=== PATIENT | female | born 1960 | race Caucasian/White ===

== ENCOUNTER 2019-10-30 19:37 | Emergency (ER) | payer BC ==
[2019-10-30 19:41] VITALS: BP 107/72; PULSE 52; RESP 20; TEMP 97.8
[2019-10-30] MEDS ORDERED: IBUPROFEN 600 MG TAB PO STA (19:53)
--- NOTE | 2019-10-30 19:57 | ED ---
Upper Extremity HPI - General Chief Complaint: Extremity Injury, Upper Stated Complaint: Fall Rt Wrist Injury Time Seen by Provider: 10/30/19 19:42 Source: patient Mode of arrival: ambulatory Limitations: no limitations - History of Present Illness Initial Comments: Patient is a 59-year-old female presenting to emergency Department with complaints of right wrist pain. Patient states she tripped and fell backwards landing onto her right wrist. She denies hitting her head or any other injuries at this time. States she is unable to move her wrist. She denies any previous wrist or hand surgeries. She has no other complaints at this time. Upon arrival to the ER, her vital signs are stable. - Related Data Allergies Allergy/AdvReac Type Severity Reaction Status Date / Time No Known Allergies Allergy Verified 10/30/19 19:41 Review of Systems ROS Statement: Those systems with pertinent positive or pertinent negative responses have been documented in the HPI. ROS Other: All systems not noted in ROS Statement are negative. Past Medical History Past Medical History: No Reported History History of Any Multi-Drug Resistant Organisms: None Reported Past Surgical History: No Surgical Hx Reported Past Psychological History: No Psychological Hx Reported Smoking Status: Never smoker Past Alcohol Use History: None Reported Past Drug Use History: None Reported General Exam - General Exam Comments Initial Comments: GENERAL: Well-appearing, well-nourished and in no acute distress. HEAD: Atraumatic, normocephalic. EYES: Pupils equal round and reactive to light, extraocular movements intact, sclera anicteric, conjunctiva are normal. ENT: Moist mucous membranes. NECK: Normal range of motion, supple without lymphadenopathy or JVD. LUNGS: Breath sounds clear to auscultation bilaterally and equal. No wheezes rales or rhonchi. HEART: Regular rate and rhythm without murmurs, rubs or gallops. ABDOMEN: Soft, nontender, normoactive bowel sounds. No guarding, no rebound. No masses appreciated. : Deferred EXTREMITIES: Patient has pain with palpation of her right wrist, moderate amount of swelling over the dorsal aspect. Patient is unable to flex or extend or supinate the right wrist. No pain at the right elbow or right shoulder. She is neurovascular intact. NEUROLOGICAL: Normal speech, normal gait. PSYCH: Normal mood, normal affect. SKIN: Warm, Dry, normal turgor, no rashes or lesions noted. Limitations: no limitations Course Vital Signs 10/30/19 19:38 Temperature 97.8 F Pulse Rate 52 L Respiratory 20 Rate Blood Pressure 107/72 O2 Sat by Pulse 98 Oximetry Procedures - Orthopedic Splinting/Casting Injury #1 Side: right Upper Extremity Injury Location: short arm Upper Extremity Immobilizer: sling/shoulder immobilizer, posterior splint, Av wrap, synthetic pre-padded splint Medical Decision Making - Medical Decision Making Patient is 59-year-old female here with right wrist pain after falling on it just prior to arrival. Patient does have significant swelling of the dorsal aspect of the right wrist. X-rays reveal a displaced ulnar styloid fracture as well as a comminuted intra-articular distal right radial fracture. Patient was given Motrin. Patient will be put in a short arm splint as well as a sling for comfort. She will follow up with orthopedics tomorrow. Patient was given starter pack of Tylenol 3 for pain. She is agreeable with this plan of care. She is stable for discharge. Return parameters were discussed with the patient she verbalized understanding. Case discussed Dr. Sinclair. Disposition Clinical Impression: Fracture of distal end of right radius and ulna Disposition: HOME SELF-CARE Condition: Stable Instructions (If sedation given, give patient instructions): Wrist Fracture in Adults (ED) Additional Instructions: Please return to the Emergency Department if symptoms worsen or any other concerns. Leave splint in place until follow-up with orthopedics. May take ibuprofen for pain and swelling. Use ice as needed for pain and swelling. Follow up with orthopedics tomorrow morning as discussed. Is patient prescribed a controlled substance at d/c from ED?: No Referrals: Orion Henriquez MD [Primary Care Provider] - 1-2 days Agus Valladares MD [STAFF PHYSICIAN] - 1-2 days
--- NOTE | 2019-10-30 20:28 | XR ---
Right forearm and right wrist HISTORY: Trauma and pain 4 views of the right wrist, 2 views of the forearm submitted. There is a displaced ulnar styloid fracture present. Comminuted intra-articular distal right radial f racture with a fragment showing some displacement is also noted, slight dorsal angulation, there is a ssociated soft tissue swelling present. IMPRESSION: Wrist fractures as described.
[2019-10-30] MEDS ORDERED: ACET/COD 300 MG/30 MG STARTER PACK 6 TAB BTL PO STA (20:45)
== END 2019-10-30 20:56 | disposition home or self-care (01) ==
LOC: EC 19:37
DX: S52.571A Other intraarticular fracture of lower end of right radius, initial encounter for closed fracture (principal); S52.611A Displaced fracture of right ulna styloid process, initial encounter for closed fracture; W01.0XXA Fall on same level from slipping, tripping and stumbling without subsequent striking against object, initial encounter; Y92.009 Unspecified place in unspecified non-institutional (private) residence as the place of occurrence of the external cause
CPT/HCPCS: 29125; 99283

== ENCOUNTER → 2020-10-15 | Outpatient (CLI) | payer BC ==
--- NOTE | 2020-10-15 19:47 | ECHOF ---
Referral Reason:I49.3 Ventricular premature depolarization MEASUREMENTS -------- HEIGHT: 175.3 cm WEIGHT: 81.6 kg BP: RVIDd: 2.6 cm (< 3.3) IVSd: 1.0 cm (0.6 - 1.1) LVIDd: 4.6 cm (3.9 - 5.3) LVPWd: 0.8 cm (0.6 - 1.1) IVSs: 1.2 cm LVIDs: 3.1 cm LVPWs: 1.7 cm LA Diam: 3.5 cm (2.7 - 3.8) LAESV Index (A-L): 26.12 ml/m Ao Diam: 2.5 cm (2.0 - 3.7) AV Cusp: 1.8 cm (1.5 - 2.6) LA Diam: 3.4 cm (2.7 - 3.8) MV EXCURSION: 17.896 mm (> 18.000) MV EF SLOPE: 90 mm/s (70 - 150) EPSS: 0.2 cm MV E Torrey: 0.61 m/s MV DecT: 221 ms MV A Torrey: 0.56 m/s MV E/A Ratio: 1.10 RAP: 5.00 mmHg RVSP: 22.12 mmHg FINDINGS -------- Sinus rhythm. This was a technically adequate study. LV size, wall thickness and systolic function are normal, with an EF greater than 55%. The left pauline tricular size is normal. The right ventricle is normal in size. Normal LA size by volume 22+/-6 ml/m2. The right atrial size is normal. The aortic valve is trileaflet, and appears structurally normal. No aortic stenosis or regurgitation. The mitral valve is normal. Mild mitral regurgitation is present. The tricuspid valve appears structurally normal. Mild tricuspid regurgitation present. Right vent ricular systolic pressure is normal at < 35 mmHg. The right ventricular systolic pressure, as measu red by Doppler, is 22.12mmHg. Trace/mild (physiologic) pulmonic regurgitation. The aortic root size is normal. There is no pericardial effusion. CONCLUSIONS -------- 1. LV size, wall thickness and systolic function are normal, with an EF greater than 55%. 2. Normal LA size by volume 22+/-6 ml/m2. 3. The aortic valve is trileaflet, and appears structurally normal. No aortic stenosis or regurgitati on. 4. Mild mitral regurgitation is present. 5. Mild tricuspid regurgitation present. 6. Trace/mild (physiologic) pulmonic regurgitation. 7. There is no pericardial effusion. TECHNICAL PLANNER: Ely Rivera RDCS
== END | disposition home or self-care (01) ==
LOC: RADECHMAIN 08:14
PROVIDERS: ATTEND Nurse Practitioner Adult Health
DX: I08.1 Rheumatic disorders of both mitral and tricuspid valves (principal)
CPT/HCPCS: 93306

== ENCOUNTER 2020-10-21 18:13 | Emergency (ER) | payer BC ==
--- NOTE | 2020-10-21 19:29 | ED ---
SOB HPI - General Chief Complaint: Shortness of Breath Stated Complaint: Sent by PCP Time Seen by Provider: 10/21/20 19:12 Source: patient, RN notes reviewed Mode of arrival: ambulatory Limitations: no limitations - History of Present Illness Initial Comments: 60-year-old well-appearing white female presents to the emergency room ambulatory. Patient states was sent by Dr. Henriquez's office today after having a positive d-dimer of 1.02. Patient states has had dizziness on and off for over 10 days was put on a olive pitter which revealed only occasional PVCs. Patient. Patient states he has no medical history and only takes vitamins including niacin and OTC joint therapy. Patient is a nonsmoker. States surgical history of a torn right meniscus over 15 years ago and right wrist fracture over 10 years ago not requiring surgery. Patient states when she has dizziness would resolve when she lays down. Patient states does not feel short of breath but is aware of having to drop breath and states worse when she lays down. MD Complaint: shortness of breath -: days(s) (10) Severity: mild Severity scale (1-10): 4 Quality: other (Denies pain states just feels aware of her breathing) Consistency: intermittent Improves With: nothing Worsens With: lying flat Context: other (has had intermitent dizziness) Associated Symptoms: other (dizziness) Treatments Prior to Arrival: other (pcr covid, ekg, d-dimer 1.02, mag 2.1, trop .012) - Related Data Previous Rx's Medication Instructions Recorded Albuterol Inhaler [Ventolin Hfa 2 puff INHALATION RT-QID #1 puff 10/21/20 Inhaler] predniSONE [Deltasone] 20 mg PO BID 5 Days #10 tab 10/21/20 Allergies Allergy/AdvReac Type Severity Reaction Status Date / Time No Known Allergies Allergy Verified 10/21/20 18:48 Review of Systems ROS Statement: Those systems with pertinent positive or pertinent negative responses have been documented in the HPI. ROS Other: All systems not noted in ROS Statement are negative. Past Medical History Past Medical History: No Reported History History of Any Multi-Drug Resistant Organisms: None Reported Past Surgical History: Orthopedic Surgery Past Psychological History: No Psychological Hx Reported Smoking Status: Former smoker Past Alcohol Use History: Occasional Past Drug Use History: None Reported General Exam Limitations: no limitations General appearance: alert, in no apparent distress Head exam: Present: atraumatic, normocephalic, normal inspection Eye exam: Present: normal appearance, PERRL, EOMI. Absent: scleral icterus, conjunctival injection, periorbital swelling ENT exam: Present: normal exam, mucous membranes moist Neck exam: Present: normal inspection. Absent: tenderness, meningismus, lymphadenopathy Respiratory exam: Present: normal lung sounds bilaterally. Absent: respiratory distress, wheezes, rales, rhonchi, stridor Cardiovascular Exam: Present: normal rhythm, bradycardia, normal heart sounds. Absent: systolic murmur, diastolic murmur, rubs, gallop, clicks GI/Abdominal exam: Present: soft, normal bowel sounds. Absent: distended, tenderness, guarding, rebound, rigid Neurological exam: Present: alert, oriented X3, CN II-XII intact Psychiatric exam: Present: normal affect, normal mood, anxious Skin exam: Present: warm, dry, intact, normal color. Absent: rash Course Vital Signs 10/21/20 18:46 Temperature 97.9 F Pulse Rate 56 L Respiratory 20 Rate Blood Pressure 117/61 O2 Sat by Pulse 99 Oximetry Medical Decision Making - Medical Decision Making Case discussed with Dr. Shelton. CTA shows no PE, 1.5 cm cyst in the right upper lobe increased slightly in size from 2012. There is no pericardial effusion, there is no hilar mass, no aneurysms months, aorta intact, lungs clear. She was Covid negative with rapid test. CO2 is 32, d-dimer from outpatient lab draw 1.02 and troponin is 0.012, magnesium 2.1 - Lab Data Result diagrams: 10/21/20 21:02 Lab Results 10/21/20 10/21/20 10/21/20 Range/Units 21:02 21:02 21:02 PT 10.3 (9.0-12.0) sec INR 1.0 (<1.2) APTT 22.0 (22.0-30.0) sec Sodium 139 (137-145) mmol/L Potassium 4.1 (3.5-5.1) mmol/L Chloride 103 (98-107) mmol/L Carbon Dioxide 32 H (22-30) mmol/L Anion Gap 4 mmol/L BUN 15 (7-17) mg/dL Creatinine 0.69 (0.52-1.04) mg/dL Est GFR (CKD-EPI)AfAm >90 (>60 ml/min/1.73 sqM) Est GFR (CKD-EPI)NonAf >90 (>60 ml/min/1.73 sqM) Glucose 93 (74-99) mg/dL Calcium 9.6 (8.4-10.2) mg/dL Total Bilirubin 0.6 (0.2-1.3) mg/dL AST 21 (14-36) U/L ALT 17 (4-34) U/L Alkaline Phosphatase 85 (38-126) U/L Total Protein 7.2 (6.3-8.2) g/dL Albumin 4.4 (3.5-5.0) g/dL Coronavirus (PCR) Not Detected (Not Detectd) - EKG Data -: EKG Interpreted by Me EKG shows normal: sinus rhythm (Ventricular rate of 48, MT interval 0.15, QRS of 0.88, QTc of 410 ms) Rate: bradycardia Disposition Clinical Impression: Dyspnea Disposition: HOME SELF-CARE Condition: Good Additional Instructions: Take prednisone as prescribed for the next 5 days, use albuterol inhaler as needed for shortness of breath every 4 hours. Return to the emergency room if increasing shortness of breath or chest pain. Follow-Up with your doctor this week Prescriptions: predniSONE [Deltasone] 20 mg PO BID 5 Days #10 tab Albuterol Inhaler [Ventolin Hfa Inhaler] 2 puff INHALATION RT-QID #1 puff Is patient prescribed a controlled substance at d/c from ED?: No Referrals: Orion Henriquez MD [Primary Care Provider] - 1-2 days Time of Disposition: 23:08
[2020-10-21 21:26] LABS: ALT 17 U/L (4-34); AST 21 U/L (14-36); African American GFR (CKD) >90 (>60 ml/min/1.73 sqM); Albumin 4.4 g/dL (3.5-5.0); Alkaline Phosphatase 85 U/L (38-126); Anion Gap 4 mmol/L; Blood Urea Nitrogen 15 mg/dL (7-17); Calcium 9.6 mg/dL (8.4-10.2); Carbon Dioxide 32 mmol/L (22-30); Chloride 103 mmol/L (98-107); Glucose 93 mg/dL (74-99); Non-African American GFR(CKD) >90 (>60 ml/min/1.73 sqM); Potassium 4.1 mmol/L (3.5-5.1); Sodium 139 mmol/L (137-145); Total Bilirubin 0.6 mg/dL (0.2-1.3); Total Protein 7.2 g/dL (6.3-8.2)
[2020-10-21 21:40] LABS: Prothrombin Time 10.3 sec (9.0-12.0)
--- NOTE | 2020-10-21 22:41 | CT ---
EXAMINATION TYPE: CT angio chest DATE OF EXAM: 10/21/2020 COMPARISON: None HISTORY: elevated d-dimer CT DLP: 310.4 mGycm Automated exposure control for dose reduction was used. CONTRAST: Performed with IV Contrast, patient injected with 72cc mL of Isovue 370. Images obtained from the thoracic inlet to the diaphragm with IV contrast and 3-D post processed imag es. The lungs are clear of infiltrate. There is no pleural effusion. Heart size is normal. There is no pe ricardial effusion. There are no hilar masses. There is no mediastinal adenopathy. Thoracic aorta is intact. There is no aneurysm or dissection. The re is 1.5 cm cyst in the superior right lobe of the liver slightly increased in size compared to old CT scan of 08/12/2011. There is normal contrast opacification of the pulmonary arteries. There are no filling defects. There is intact thoracic spine. There is no compression fracture. Sternum is intact. The ribs appear intact. IMPRESSION: Negative exam. No evidence of pulmonary embolism.
[2020-10-21 23:44] VITALS: BP 133/72; PULSE 61; RESP 18; TEMP 97.8
== END 2020-10-21 23:44 | disposition home or self-care (01) ==
LOC: EC 18:13
DX: R06.00 Dyspnea, unspecified (principal); Z87.891 Personal history of nicotine dependence; Z20.822 Contact with and (suspected) exposure to COVID-19
CPT/HCPCS: 36415; 93005; 80053; 85610; 85730; 87635; 71275; 99285; Q9967

== ENCOUNTER → 2020-10-21 | Outpatient (CLI) | payer BC ==
[2020-10-21 16:37] LABS: Basophils % (A) 1 %; Eosinophils % (A) 1 %; HCT 45.3 % (34.0-46.0); Lymphocytes # (A) 1.8 k/uL (1.0-4.8); Lymphocytes % (A) 36 %; MCH 31.1 pg (25.0-35.0); MCHC 33.2 g/dL (31.0-37.0); MCV 93.8 fL (80.0-100.0); Mean Platelet Volume 8.1; Monocytes # (A) 0.4 k/uL (0-1.0); Monocytes % (A) 7 %; Neutrophils # (A) 2.6 k/uL (1.3-7.7); Neutrophils % (A) 52 %; Platelet Count 222 k/uL (150-450); RBC 4.83 m/uL (3.80-5.40); RDW 12.4 % (11.5-15.5); WBC 4.9 k/uL (3.8-10.6)
[2020-10-21 16:47] LABS: Magnesium 2.1 mg/dL (1.6-2.3)
== END | disposition home or self-care (01) ==
LOC: LABWHC1 16:08
PROVIDERS: ATTEND Nurse Practitioner Adult Health
DX: R07.9 Chest pain, unspecified (principal); R53.83 Other fatigue
CPT/HCPCS: 36415; 82607; 83735; 84484; 85025; 85379

== ENCOUNTER 2021-03-30 11:02 | Day surgery (SDC) | payer BC ==
[2021-03-26 10:04] VITALS: BMI 26.0
[~2021-03-30 11:02] MED LIST: SODIUM CHLORIDE 0.9% 1,000 ML IV SCH
[2021-03-30 11:35] VITALS: BP 119/54; PULSE 55; RESP 18; TEMP 97.7
--- NOTE | 2021-03-30 16:12 | P.EPPROC ---
- EP Procedure Note Electrophysiology Procedure Note: Diagnosis Recurrent syncope Twelve-lead EKG shows sinus rhythm normal MS narrow QRS QT interval is about 460 ms, The JT interval appears mildly prolonged/upper limits of normal Tilt table test per protocol Baseline blood pressure 129/61 mmHg Baseline heart rate 52 beats a minute patient was tilted upright at night left 70 per protocol blood pressure remained stable for about 6 minutes following that there was a sudden drop in blood pressure to 77 mmHg and then further down to 48/33 mmHg. The patient complained of being lightheaded with a tingling sensation and then passed out completely No symptoms and change in heart rate When she was laid supine blood pressure normalized immediately and she regained consciousness very quickly Impression vasodepressor response to upright tilting QT interval is the upper limits of normal
== END 2021-03-30 13:22 | disposition home or self-care (01) ==
LOC: CATHEP 11:02
PROVIDERS: ATTEND Internal Medicine Clinical Cardiac Electrophysiology
DX: R55 Syncope and collapse (principal); E78.2 Mixed hyperlipidemia; Z82.49 Family history of ischemic heart disease and other diseases of the circulatory system; I47.2 Ventricular tachycardia; Z79.899 Other long term (current) drug therapy
CPT/HCPCS: 93660

== ENCOUNTER → 2021-04-12 | Outpatient (CLI) | payer BC ==
--- NOTE | 2021-04-12 11:32 | MR ---
EXAMINATION TYPE: MR angio head wo con DATE OF EXAM: 04/12/2021 COMPARISON: None HISTORY: Syncope, fall, hitting face on March 11. TECHNIQUE: Time of flight images focusing on the [place] of [place] were performed without contrast. FINDINGS: Distal ICAs and vertebral arteries are within normal limits. The left A1 and M1 segments ar e slightly narrowed compared to the right. The bilateral posterior cerebral arteries and the basilar artery and its proximal branches are patent. No aneurysm. IMPRESSION: No large vessel occlusion, hemodynamically significant stenosis or aneurysm in the [place] of [place] a rteries. 3-D reformatted images confirm the above findings.
== END | disposition home or self-care (01) ==
LOC: RADMRIMAIN 07:50
PROVIDERS: ATTEND Family Medicine
DX: R55 Syncope and collapse (principal); W19.XXXA Unspecified fall, initial encounter
CPT/HCPCS: 70544

== ENCOUNTER → 2021-04-23 | Outpatient (CLI) | payer BC ==
--- NOTE | 2021-04-23 12:21 | US ---
EXAMINATION TYPE: US carotid duplex BILAT DATE OF EXAM: 04/23/2021 COMPARISON: NONE CLINICAL HISTORY: 61-year-old female [id number] Syncope and collapse. TECHNIQUE: Carotid duplex ultrasound examination. Indirect Doppler criteria was utilized. FINDINGS: EXAM MEASUREMENTS: RIGHT: Peak Systolic Velocity (PSV) cm/sec ----- Right CCA: 84.2 ----- Right ICA: 102.9 ----- Right ECA: 102.9 ICA/CCA ratio: 1.2 RIGHT: End Diastole cm/sec ----- Right CCA: 21.5 ----- Right ICA: 38.0 ----- Right ECA: 17.1 LEFT: Peak Systolic Velocity (PSV) cm/sec ----- Left CCA: 95.2 ----- Left ICA: 108.4 ----- Left ECA: 102.9 ICA/CCA ratio: 1.1 LEFT: End Diastole cm/sec ----- Left CCA: 23.7 ----- Left ICA: 38.0 ----- Left ECA: 12.8 VERTEBRALS (direction of flow): Right Vertebral: Antegrade Left Vertebral: Antegrade Rhythm: Normal [employer] Press Set Up Operator notes: Minimal plaque bilateral bifurcations. No evidence of increased velocities IMPRESSION: No hemodynamically significant ICA stenosis on either side. Criteria for Assigning % of Stenosis / Diameter reduction (Estimation based on the indirect measurements of the internal carotid artery velocities (ICA PSV). 1. Normal (no stenosis)=ICA PSV < 125 cm/s: ratio < 2.0: ICA EDV<40 cm/s. 2. Less than 50% stenosis=ICA PSV < 125 cm/s: ratio < 2.0: ICA EDV<40 cm/s. 3. 50 to 69% stenosis=ICA PSV of 125 to 230 cm/s: ration 2.0 ? 4.0: ICA EDV 40-100 cm/s. 4. Greater than 70% stenosis to near occlusion= ICA PSV > 230 cm/s: ratio > 4.0: ICA EDV > 100 cm/s. 5. Near occlusion= ICA PSV velocities may be low or undetectable: variable ratio and ICA EDV. 6. Total occlusion=unable to detect flow.
== END | disposition home or self-care (01) ==
LOC: RADUSWWP 08:28
PROVIDERS: ATTEND Family Medicine
DX: I65.23 Occlusion and stenosis of bilateral carotid arteries (principal)
CPT/HCPCS: 93880